=== PATIENT | female | born 1995 | race African-American/Black ===

== ENCOUNTER 2023-02-13 12:25 | Inpatient (IN) | payer BC, OTHER ==
[~2023-02-13] VITALS: Ht 149.9 cm; Wt 86.6 kg
[2023-02-13] MEDS ORDERED: BETAMET ACET/BETAMET NA PH 30 MG/5 ML VIAL IM ONE (13:15)
[2023-02-13] MEDS: INSULIN REGULAR, HUMAN 100 UNITS/ML, 3 ML VIAL SUBCUT SCH (23:10)
[2023-02-13] MEDS: INSULIN NPH 100 UNITS/ML 10 ML VIAL SUBCUT SCH (23:12)
[2023-02-14] MEDS: INSULIN NPH 100 UNITS/ML 10 ML VIAL SUBCUT SCH ×2 (07:00→23:09)
[2023-02-14] MEDS: INSULIN REGULAR, HUMAN 100 UNITS/ML, 3 ML VIAL SUBCUT SCH ×3 (08:36→23:07)
[2023-02-14] MEDS ORDERED: INSULIN REGULAR, HUMAN 10 UNITS/0.1 ML, 3 ML VIAL SUBCUT ONE (12:30)
[2023-02-14] MEDS ORDERED: BETAMET ACET/BETAMET NA PH 30 MG/5 ML VIAL IM ONE (13:00)
[2023-02-15] MEDS ORDERED: TERBUTALINE SULFATE 1 MG/ML VIAL SUBCUT ONE (01:30)
[2023-02-15] MEDS: INSULIN NPH 100 UNITS/ML 10 ML VIAL SUBCUT SCH ×2 (09:09→22:54)
[2023-02-15] MEDS: INSULIN REGULAR, HUMAN 100 UNITS/ML, 3 ML VIAL SUBCUT SCH (09:12)
[2023-02-16] MEDS: INSULIN NPH 100 UNITS/ML 10 ML VIAL SUBCUT SCH ×2 (09:10→23:27)
[2023-02-16] MEDS: INSULIN REGULAR, HUMAN 100 UNITS/ML, 3 ML VIAL SUBCUT SCH ×2 (09:11→23:26)
[2023-02-16] MEDS: SENNOSIDES/DOCUSATE SODIUM 1 TAB TABLET(SENOKOT-S) PO SCH (21:05)
[2023-02-17] MEDS ORDERED: DOCUSATE SODIUM 100 MG CAPSULE PO SCH (09:00)
[2023-02-17] MEDS: INSULIN NPH 100 UNITS/ML 10 ML VIAL SUBCUT SCH ×2 (09:27→23:33)
[2023-02-17] MEDS: INSULIN REGULAR, HUMAN 100 UNITS/ML, 3 ML VIAL SUBCUT SCH ×2 (09:29→23:39)
[2023-02-17] MEDS: SENNOSIDES/DOCUSATE SODIUM 1 TAB TABLET(SENOKOT-S) PO SCH (20:50)
[2023-02-18] MEDS: INSULIN REGULAR, HUMAN 100 UNITS/ML, 3 ML VIAL SUBCUT SCH (07:51)
[2023-02-18] MEDS: INSULIN NPH 100 UNITS/ML 10 ML VIAL SUBCUT SCH (07:53)
== END 2023-02-18 11:02 | disposition home or self-care (01) | DRG 832 ==
LOC: SPU 12:25 → OBSVTOIN 02-15 07:11 → SPU 02-16 09:40
PROVIDERS: ADMIT Specialist; ATTEND Specialist
DX: O36.8330 Maternal care for abnormalities of the fetal heart rate or rhythm, third trimester, not applicable or unspecified (principal); O24.913 Unspecified diabetes mellitus in pregnancy, third trimester; Z3A.32 32 weeks gestation of pregnancy; Z79.4 Long term (current) use of insulin; O69.81X0 Labor and delivery complicated by cord around neck, without compression, not applicable or unspecified
CPT/HCPCS: 81002; 82962; G0378; J0702; J1815; J3105

== ENCOUNTER 2023-02-18 18:15 | Observation (INO) | payer BC ==
[~2023-02-18] VITALS: Ht 149.9 cm; Wt 86.6 kg
[2023-02-18] MEDS ORDERED: DOCUSATE SODIUM 100 MG CAPSULE PO PRN (19:15)
[2023-02-18] MEDS ORDERED: ACETAMINOPHEN 325 MG TABLET PO PRN (19:30)
[2023-02-18] MEDS ORDERED: INSULIN NPH 100 UNITS/ML 10 ML VIAL SUBCUT SCH (21:00)
[2023-02-18] MEDS ORDERED: INSULIN REGULAR, HUMAN 100 UNITS/ML, 3 ML VIAL SUBCUT SCH (21:00)
[2023-02-18] MEDS ORDERED: SENNOSIDES 8.6 MG TABLET PO SCH (21:00)
[2023-02-19] MEDS ORDERED: INSULIN REGULAR, HUMAN 100 UNITS/ML, 3 ML VIAL SUBCUT SCH (07:00)
[2023-02-19] MEDS ORDERED: INSULIN NPH 100 UNITS/ML 10 ML VIAL SUBCUT SCH (07:00)
== END 2023-02-19 18:40 | disposition home or self-care (01) ==
LOC: SPU 18:15
PROVIDERS: ADMIT Specialist; ATTEND Specialist
DX: O40.3XX0 Polyhydramnios, third trimester, not applicable or unspecified (principal); O36.8130 Decreased fetal movements, third trimester, not applicable or unspecified; O24.913 Unspecified diabetes mellitus in pregnancy, third trimester; O36.8330 Maternal care for abnormalities of the fetal heart rate or rhythm, third trimester, not applicable or unspecified; Z3A.33 33 weeks gestation of pregnancy
CPT/HCPCS: 96372 ×2; 82962 ×2; G0378 ×2; J1815

== ENCOUNTER 2023-02-24 15:20 | Observation (INO) | payer BC ==
[~2023-02-24] VITALS: Ht 149.9 cm; Wt 87.1 kg
== END 2023-02-24 16:41 | disposition home or self-care (01) ==
LOC: SPU 15:20
PROVIDERS: ADMIT Specialist; ATTEND Specialist
DX: Z34.83 Encounter for supervision of other normal pregnancy, third trimester (principal); Z3A.34 34 weeks gestation of pregnancy
CPT/HCPCS: 59025; 81002; G0378; G0379

== ENCOUNTER 2023-02-26 12:40 | Observation (INO) | payer BC ==
[~2023-02-26] VITALS: Ht 149.9 cm; Wt 86.2 kg
== END 2023-02-26 14:10 | disposition home or self-care (01) ==
LOC: SPU 12:40
PROVIDERS: ADMIT Specialist; ATTEND Specialist
DX: O62.9 Abnormality of forces of labor, unspecified (principal); Z3A.34 34 weeks gestation of pregnancy
CPT/HCPCS: G0379; G0378

== ENCOUNTER 2023-03-03 13:39 | Observation (INO) | payer BC ==
[~2023-03-03] VITALS: Ht 149.9 cm; Wt 87.1 kg
== END 2023-03-03 14:50 | disposition home or self-care (01) ==
LOC: SPU 13:39
PROVIDERS: ADMIT Specialist; ATTEND Specialist
DX: Z34.83 Encounter for supervision of other normal pregnancy, third trimester (principal); Z3A.35 35 weeks gestation of pregnancy
CPT/HCPCS: 81002; G0379; G0378

== ENCOUNTER 2023-04-02 09:52 | Emergency (ER) | payer BC ==
[~2023-04-02] VITALS: Ht 149.9 cm; Wt 76.7 kg
[2023-04-02 10:03] VITALS: BP_SYST 140
[2023-04-02 10:46] LABS: BASOPHILS # (AUTO) 0.1 K/uL (0.0-0.2); BASOPHILS % (AUTO) 0.8 % (0.0-2.0); EOSINOPHILS # (AUTO) 0.1 K/uL (0.0-0.4); EOSINOPHILS % (AUTO) 0.7 % (0.0-4.0); HEMATOCRIT 25.9 % (36-48); HEMOGLOBIN 8.2 g/dL (12.0-16.0); LYMPHOCYTES # (AUTO) 1.7 K/uL (1.0-5.5); LYMPHOCYTES % (AUTO) 22.2 % (20.5-51.5); MEAN CORPUSCULAR HEMOGLOBIN 23 pg (27-31); MEAN CORPUSCULAR HGB CONC 32 % (32-36); MEAN CORPUSCULAR VOLUME 72 fL (79.0-98.0); MONOCYTES # (AUTO) 0.2 K/uL (0.0-1.0); MONOCYTES % (AUTO) 2.2 % (1.7-9.3); NEUTROPHILS # (AUTO) 5.7 K/uL (1.8-7.7); NEUTROPHILS % (AUTO) 74.1 % (40.0-70.0); PLATELET COUNT (AUTO) 445 K/uL (130-430); RED BLOOD CELL COUNT(AUTO) 3.58 MIL/uL (4.2-6.2); WHITE BLOOD COUNT (AUTO) 7.7 K/uL (4.8-10.8)
[2023-04-02 11:20] VITALS: BP_SYST 128
== END 2023-04-02 11:26 | disposition home or self-care (01) ==
LOC: SED 09:52
DX: O72.1 Other immediate postpartum hemorrhage (principal); N93.9 Abnormal uterine and vaginal bleeding, unspecified; R10.2 Pelvic and perineal pain; Z79.899 Other long term (current) drug therapy
CPT/HCPCS: 36415; 76856-TC; 85025; 99284